=== PATIENT | female | born 1970 | race Two or more races ===

== ENCOUNTER 2018-02-10 16:38 | Emergency (ER) | payer OTHER ==
[~2018-02-10] VITALS: Ht 167.6 cm; Wt 72.6 kg
[~2018-02-10 16:38] MED LIST: LORA-259 PO
[2018-02-10] MEDS ORDERED: ALPR0.5T8 PO (16:50)
--- NOTE | 2018-02-10 16:54 | NUR ---
Patient was seen by dr Nieves. She is awake and alert. She is crying. Vital signs stable. Denies chest pain or SOB.
[2018-02-10] MEDS: LORAZEPAM 0.5 MG TABLET PO ONE (16:56)
[2018-02-10] MEDS ORDERED: LORAZEPAM 0.5 MG TABLET ONE (16:58)
--- NOTE | 2018-02-10 17:13 | NUR ---
Medication given as ordereed. Instructed patient and son that she should not drive or have alcohol because she took Ativan. DC and follow up instrutions given and explained to patient who states she understands all instructions.
[2018-02-10 17:17] VITALS: BP 135/82
== END 2018-02-10 17:18 | disposition home or self-care (01) ==
LOC: ER 16:41
DX: F41.9 Anxiety disorder, unspecified (principal); Z79.899 Other long term (current) drug therapy
CPT/HCPCS: A4663

== ENCOUNTER 2018-12-26 16:49 | Emergency (ER) | payer OTHER ==
[~2018-12-26] VITALS: Ht 165.1 cm; Wt 70.3 kg
[~2018-12-26 16:49] MED LIST changes: +ALPR0.5T8 PO
--- NOTE | 2018-12-26 17:06 | NUR ---
PT IS IN ROOM #1B. DR SR EVALUATED THE PT.
--- NOTE | 2018-12-26 17:17 | NUR ---
PT WAS D/C'd TO HOME. D/C INSTRUCTIONS GIVEN TO THE PT.
[2018-12-26 17:18] VITALS: BP 136/75
== END 2018-12-26 17:19 | disposition home or self-care (01) ==
LOC: ER 16:50
DX: J20.9 Acute bronchitis, unspecified (principal); F17.200 Nicotine dependence, unspecified, uncomplicated; Z79.899 Other long term (current) drug therapy
CPT/HCPCS: A4663

== ENCOUNTER 2019-07-26 11:30 | Emergency (ER) | payer OTHER ==
[~2019-07-26] VITALS: Ht 165.1 cm; Wt 72.6 kg
--- NOTE | 2019-07-26 11:42 | NUR ---
ER AT BEDSIDE
[2019-07-26] MEDS ORDERED: TDAP DIPH,PERTUSS,TET VAC/PF 0.5 ML DISP.SYRIN IM ONE ×2 (13:44→13:45)
[2019-07-26 13:47] VITALS: BP 110/79
--- NOTE | 2019-07-26 13:47 | NUR ---
Patient discharged to home in stable conditon. Written and verbal after care instructions given. Patient verbalizes understanding of instructions. ALL BELONGINGS W/ PT. PT SELF-AMBULATED W/O DIFFICULTY.
== END 2019-07-26 13:47 | disposition home or self-care (01) ==
LOC: ER 11:30
DX: L03.115 Cellulitis of right lower limb (principal); F41.9 Anxiety disorder, unspecified; F17.210 Nicotine dependence, cigarettes, uncomplicated; Z79.899 Other long term (current) drug therapy
CPT/HCPCS: 73562; 73630; 90715; A4663

== ENCOUNTER 2021-03-09 12:32 | Emergency (ER) | payer OTHER ==
[~2021-03-09] VITALS: Ht 165.1 cm; Wt 65.8 kg
--- NOTE | 2021-03-09 12:49 | NUR ---
[email or web address], medical screening exam in progress.
[2021-03-09] MEDS ORDERED: PANTOPRAZOLE SODIUM 40 MG VIAL IV ONE (13:00)
[2021-03-09] MEDS ORDERED: IV NORMAL SALINE 1000 ML BAG IV ONE (13:00)
[2021-03-09] MEDS ORDERED: ONDANSETRON 4 MG/2 ML VIAL IV ONE (13:00)
[2021-03-09] MEDS ORDERED: PANTOPRAZOLE SODIUM 40 MG VIAL ONE (13:03)
[2021-03-09] MEDS ORDERED: ONDANSETRON 4 MG/2 ML VIAL ONE (13:03)
[2021-03-09 13:16] LABS: BASOPHILS # (AUTO) 0.1 K/uL (0.0-8.0); BASOPHILS % (AUTO) 0.8 % (0.0-2.0); EOSINOPHILS # (AUTO) 0.1 K/uL (0.0-0.7); EOSINOPHILS % (AUTO) 1.4 % (0.0-7.0); HEMATOCRIT 40.1 % (31.2-41.9); HEMOGLOBIN 13.7 g/dL (10.9-14.3); LYMPHOCYTES # (AUTO) 2.1 K/uL (20.0-40.0); LYMPHOCYTES % (AUTO) 27.3 % (20.5-51.5); MEAN CORPUSCULAR HEMOGLOBIN 31.1 uug (24.7-32.8); MEAN CORPUSCULAR HGB CONC 34 g/dL (32.3-35.6); MONOCYTES # (AUTO) 0.4 K/uL (2.0-10.0); MONOCYTES % (AUTO) 5.6 % (0.0-11.0); NEUTROPHILS # (AUTO) 5.1 K/uL (1.8-8.9); NEUTROPHILS % (AUTO) 64.9 % (38.5-71.5); PLATELET COUNT (AUTO) 223 K/uL (179-408); RED BLOOD CELL COUNT(AUTO) 4.41 MIL/uL (3.63-4.92); WHITE BLOOD COUNT (AUTO) 7.9 K/uL (3.8-11.8)
[2021-03-09 13:25] LABS: BILIRUBIN,DIRECT 0.2 mg/dL (0.0-0.2); BILIRUBIN,TOTAL 1.6 mg/dL (0.2-1.0); CREATININE 0.7 mg/dL (0.6-1.3); TOTAL PROTEIN, SERUM 7.1 g/dL (6.4-8.2)
[2021-03-09 13:45] VITALS: BP 115/74
--- NOTE | 2021-03-09 13:45 | NUR ---
IV removed. Catheter intact and site benign. Pressure and 4x4 gauze applied to site. No bleeding noted.
--- NOTE | 2021-03-09 13:45 | NUR ---
Patient discharged to home in stable condition with family. Written and verbal after care instructions given. Patient verbalizes understanding of instructions. Stressed follow up or return to ER for worsening s/s.
== END 2021-03-09 13:55 | disposition home or self-care (01) ==
LOC: ER 12:34
DX: R55 Syncope and collapse (principal); R11.2 Nausea with vomiting, unspecified; R20.2 Paresthesia of skin; F41.9 Anxiety disorder, unspecified; Z79.899 Other long term (current) drug therapy
CPT/HCPCS: 36415; 71045; 80048; 80076; 83690; 84484; 85025; 93005; 96361; 96374; 96375; 99285; C9113; J2405; 70030-TC; A4663; J7030

== ENCOUNTER 2023-08-28 01:32 | Emergency (ER) | payer OTHER ==
[2023-08-28] MEDS ORDERED: IBUP-1957 PO (16:05)
[2023-08-28] MEDS ORDERED: AMOX-430 PO (16:05)
== END 2023-08-28 02:15 | disposition left against medical advice (07) ==
LOC: ER 01:35
DX: Z53.21 Procedure and treatment not carried out due to patient leaving prior to being seen by health care provider (principal)

== ENCOUNTER 2023-08-28 13:51 | Emergency (ER) | payer OTHER ==
[~2023-08-28] VITALS: Ht 165.1 cm; Wt 63.5 kg
[2023-08-28 14:02] VITALS: O2SAT 98
[2023-08-28] MEDS ORDERED: KETOROLAC TROMETHAMINE 15 MG INJ IVP ONE (14:30)
[2023-08-28] MEDS ORDERED: IV NORMAL SALINE 1000 ML BAG IV ONE (14:30)
[2023-08-28] MEDS ORDERED: METOCLOPRAMIDE HCL 10 MG/2 ML VIAL IV ONE (14:30)
[2023-08-28 14:55] LABS: BASOPHILS # (AUTO) 0.1 K/UL (0.0-0.2); BASOPHILS % (AUTO) 0.7 % (0.0-2.0); EOSINOPHILS # (AUTO) 0.1 K/uL (0.0-0.7); EOSINOPHILS % (AUTO) 1.1 % (0.0-7.0); HEMATOCRIT 38.3 % (31.2-41.9); HEMOGLOBIN 12.9 g/dL (10.9-14.3); LYMPHOCYTES # (AUTO) 2.5 K/uL (0.8-4.8); LYMPHOCYTES % (AUTO) 32.9 % (20.5-51.5); MEAN CORPUSCULAR HEMOGLOBIN 30.3 uug (24.7-32.8); MEAN CORPUSCULAR HGB CONC 34 g/dL (32.3-35.6); MEAN CORPUSCULAR VOLUME 89.9 fL (75.5-95.3); MONOCYTES # (AUTO) 0.5 K/uL (0.1-1.30); NEUTROPHILS # (AUTO) 4.5 K/uL (1.8-8.9); NEUTROPHILS % (AUTO) 59.3 % (38.5-71.5); PLATELET COUNT (AUTO) 225 K/uL (179-408); RED BLOOD CELL COUNT(AUTO) 4.26 MIL/uL (3.63-4.92); WHITE BLOOD COUNT (AUTO) 7.5 K/uL (3.8-11.8)
[2023-08-28] MEDS ORDERED: METOCLOPRAMIDE HCL 10 MG/2 ML VIAL ONE (14:55)
[2023-08-28] MEDS ORDERED: KETOROLAC TROMETHAMINE 15 MG INJ ONE (14:55)
[2023-08-28 14:58] LABS: DIFFERENTIAL COMMENT 1
[2023-08-28 15:05] LABS: CALCIUM 8.5 mg/dL (8.5-10.1); CARBON DIOXIDE 26 mmol/L (21-32); CHLORIDE 106 mmol/L (98-107); CREATININE 0.7 mg/dL (0.6-1.3); GLUCOSE 87 mg/dL (74-106); POTASSIUM 3.6 mmol/L (3.5-5.1); SODIUM SERUM 135 mmol/L (136-145); UREA NITROGEN, BLOOD 9 mg/dL (7-18)
[2023-08-28 15:14] LABS: ALANINE AMINOTRANSFERASE 8 U/L (14-59); ALBUMIN 3.5 g/dL (3.4-5.0); ALKALINE PHOSPHATASE 44 U/L (50-136); ASPARTATE AMINOTRANSFERASE 6 U/L (15-37); BILIRUBIN,DIRECT 0.2 mg/dL (0.0-0.2); BILIRUBIN,TOTAL 1.9 mg/dL (0.2-1.0); LIPASE 57 U/L (73-393); TOTAL PROTEIN, SERUM 6.6 g/dL (6.4-8.2)
[2023-08-28 15:15] LABS: *BILIRUBIN,URIN NEGATIVE (NEGATIVE); *BLOOD, URINE 1+ (NEGATIVE); *CLARITY,URINE CLEAR (CLEAR); *COLOR,URINE YELLOW (YELLOW); *KETONES,URINE NEGATIVE (NEGATIVE); *PROTEIN,URINE NEGATIVE (NEGATIVE); *UROBILINOGEN,URINE 0.2 E.U./dl (NORMAL); LEUKOCYTE ESTERASE ,URINE NEGATIVE (NEGATIVE); NITRITE, URINE NEGATIVE (NEGATIVE); UGLUCOSE NEGATIVE (NEGATIVE)
[2023-08-28 15:16] LABS: PREGNANCY TEST SERUM QUAN 1 miul/L (0-6)
[2023-08-28 15:29] LABS: BACTERIA,URINE MODERATE /HPF (NONE SEEN); SQUAMOUS EPITHELIAL CELL,UR MODERATE /HPF (NONE SEEN); WBC,URINE NONE SEEN /HPF (0-3)
[2023-08-28] MEDS ORDERED: IBUP-1957 PO (16:05)
[2023-08-28] MEDS ORDERED: AMOX-430 PO (16:05)
== END 2023-08-28 16:33 | disposition home or self-care (01) ==
LOC: ER 13:51
DX: K52.89 Other specified noninfective gastroenteritis and colitis (principal); R10.2 Pelvic and perineal pain; B96.89 Other specified bacterial agents as the cause of diseases classified elsewhere; F17.210 Nicotine dependence, cigarettes, uncomplicated; Z79.1 Long term (current) use of non-steroidal anti-inflammatories (NSAID); Z79.2 Long term (current) use of antibiotics; Z79.899 Other long term (current) drug therapy
CPT/HCPCS: 99285; 74176; 96374; 71045; 96361; 96375; 80076; 80048; 81001; 83690; 85025; 84484; 84702; 36415; 93005; J1885; J2765; J7040; A4663